=== PATIENT | female | born 1950 | race Caucasian/White ===

== ENCOUNTER 2022-01-09 14:50 | Outpatient (CLI) | payer BC, MEDICARE, SELFPAY | END 2022-01-09 14:51 | disposition home or self-care (01) | LOC: FRMREF 14:51 | PROVIDERS: PCP Internal Medicine; Visit Provider Surgery | DX: L81.9 Disorder of pigmentation, unspecified (principal) ==

== ENCOUNTER 2022-05-13 07:59 | Outpatient (CLI) | payer MEDICARE, BC, SELFPAY ==
--- NOTE | 2022-05-13 08:15 | CRLHL7_ITS ---
For Patients: As a result of the Century Cures Act, medical imaging exams and procedure reports are released immediately into your electronic medical record. You may view this report before your referring provider. If you have questions, please contact your health care provider. BILATERAL SCREENING MAMMOGRAM WITH COMPUTER-AIDED DETECTION TECHNIQUE: CC and MLO views were obtained. These mammographic images have been obtained using full-field digital technique. These mammographic images were interpreted with the benefit of computer-aided detection. COMPARISON FILM: 05/11/21, 05/04/20, 05/03/19. FINDINGS: There are scattered areas of fibroglandular density IMPRESSION: There is no radiographic evidence for malignancy. ASSESSMENT: BI-RADS Category 2: Benign RECOMMENDATION: Routine screening mammogram in 1 year. A lay language report of this examination will be provided to the patient. Morales Hill M.D. Diagnostic Radiologist [email or web address] BENJAMIN/[email or web address] / be/Dictated by: Morales Hill MD @ 05/13/2022 10:35:00 AM (Electronically Signed)
== END 2022-05-13 08:00 | disposition home or self-care (01) ==
PROVIDERS: PCP Internal Medicine; Visit Provider Internal Medicine
DX: Z12.31 Encounter for screening mammogram for malignant neoplasm of breast (principal)
CPT/HCPCS: 77063; 77067

== ENCOUNTER 2022-06-27 10:06 | Outpatient (CLI) | payer MEDICARE, BC, SELFPAY ==
[2022-06-27 10:57] LABS: Albumin* 4.5 g/dL (3.3-5.0); Chloride* 102 mmol/L (96-114)
[2022-06-27 10:58] LABS: Potassium* 4.3 mmol/L (3.6-5.1); Sodium* 140 mmol/L (135-149)
[2022-06-27 11:00] LABS: Bilirubin Total* 1.2 mg/dL (0.1-1.5); Carbon Dioxide* 27 mmol/L (20-32); Cholesterol* 129 mg/dL (90-199); Creatinine* 1.1 mg/dL (0.5-1.5); Estimated Glomerular Filt Rate 54 ml/min; Total Protein* 7.1 g/dL (6.0-8.3)
[2022-06-27 11:01] LABS: Alanine Aminotransferase* 29 U/L (4-35); Alkaline Phosphatase* 63 U/L (40-150); Aspartate Amino Transferase* 33 U/L (12-35); Blood Urea Nitrogen* 19 mg/dL (7-30); Calcium* 9.2 mg/dL (8.4-10.6); Glucose* 175 mg/dL (60-115); HDL Cholesterol* 34 mg/dL (>=50); LDL Cholesterol Calculated 48 mg/dL (<100); Triglycerides* 235 mg/dL (40-149)
[2022-06-27 11:07] LABS: Creatinine Urine 147.6 mg/dL
[2022-06-27 11:11] LABS: Microalbumin Creatinine Ratio 0 mg/g (0-30); Microalbumin Urine 1 mg/dL
== END 2022-06-27 10:07 | disposition home or self-care (01) ==
PROVIDERS: PCP Internal Medicine; Visit Provider Internal Medicine
DX: E11.9 Type 2 diabetes mellitus without complications (principal); I10 Essential (primary) hypertension; E78.5 Hyperlipidemia, unspecified; M10.9 Gout, unspecified; E03.9 Hypothyroidism, unspecified
CPT/HCPCS: 80053; 80061; 82043; 82570

== ENCOUNTER 2022-12-30 07:55 | Outpatient (CLI) | payer MEDICARE, BC, SELFPAY | END 2022-12-30 07:56 | disposition home or self-care (01) | LOC: NFLDREF 12-31 14:51 | PROVIDERS: PCP Internal Medicine; Referring Provider Internal Medicine; Visit Provider Internal Medicine | DX: E03.9 Hypothyroidism, unspecified (principal); E11.9 Type 2 diabetes mellitus without complications; Z79.4 Long term (current) use of insulin | CPT/HCPCS: 84443 ==

== ENCOUNTER 2023-01-23 23:39 | Emergency (ER) | payer MEDICARE, BC, SELFPAY ==
[2023-01-24 00:10] VITALS: BP 166/78; PULSE 89; RESP 18; TEMP 36.8; O2SAT 99; BMI 27.6
--- NOTE | 2023-01-24 00:50 | ED_ITS ---
HPI - Allergic Reaction General Time Seen by Provider: 00:50 Date Seen: 01/24/23 Chief complaint: Allergic Reaction Stated complaint: hives Time Seen by Provider: 01/24/23 00:49 Source: patient and RN notes reviewed Mode of arrival: ambulatory Limitations: no limitations History of Present Illness HPI narrative: This 72-year-old female is coming in with possible reaction to either tetanus or COVID vaccination. She had both of these done in her left arm by the pharmacist on Friday. Today her arm started to become red swollen and warm. It is a bit itchy. Today is and she did not start having this reaction until today. She has subsequently started to break out in hives along her axilla along the skin folds and clothing lines. She does not feel any oral pharyngeal changes, no shortness of breath, no difficulty breathing or swallowing. She has a history of awakening from anesthesia was significant hives once. She also had hives maybe 30-40 years ago from unknown cause. They only could fine Benadryl cream tonight. They do have Zyrtec at home, I have recommended a dose of Zyrtec when she gets home and to take that daily. MD complaint: hives Related Data Home Medications Medication Instructions Recorded Confirmed aspirin 81 mg tablet,delayed 81 mg PO DAILY 07/09/22 01/24/23 release multivitamin (Multiple Vitamins 1 tab PO QAM 07/09/22 01/24/23 tablet) calcium carbonate 600 mg calcium 600 mg PO QDAY 08/15/22 01/24/23 (1,500 mg) tablet (Calcium) insulin glargine 100 unit/mL (3 52 unit subcut QAM 11/18/22 01/24/23 mL) subcutaneous pen (Lantus Solostar U-100 Insulin) omeprazole 20 mg capsule,delayed 20 mg PO QDAY 01/06/23 01/24/23 release Previous Rx's Medication Instructions Recorded hydrocortisone acetate 25 mg 25 mg MD TID PRN hemorrhoids #9 ea 08/15/22 rectal suppository (Anusol-HC) atorvastatin 10 mg tablet 10 mg PO .Bedtime #90 tabs 08/16/22 benazepril 20 1 tab PO DAILY #90 tabs 08/16/22 mg-hydrochlorothiazide 25 mg tablet levothyroxine 100 mcg tablet 100 mcg PO QDAY #90 tabs 08/16/22 metformin 1,000 mg tablet 1,000 mg PO BID #180 tabs 08/16/22 spironolactone 25 mg tablet 25 mg PO DAILY #90 tabs 08/16/22 pen needle, diabetic 32 gauge x #400 ea 09/03/22 (BD Ultra-Fine Jazmin Pen Needle) insulin lispro 100 unit/mL 8 unit (0.08 mL) subcut TID #15 mL 09/09/22 subcutaneous pen (Humalog KwikPen (U-100) Insulin) blood sugar diagnostic (OneTouch #300 ea 10/02/22 Verio test strips) lancets 30 gauge (OneTouch Delica #300 ea 11/18/22 Plus Lancet) Allergies Allergy/AdvReac Type Severity Reaction Status Date / Time No Known Allergies Allergy Unknown Verified 01/24/23 00:12 Review of Systems Narrative As per [facility] PFSH PFS Surgical History (Updated 07/09/22 @ 08:54 by Yesi Haney MD) History of total hysterectomy with bilateral salpingo-oophorectomy (BSO) ?Z90.710 - Acquired absence of both cervix and uterus (ICD-10) ?Z90.722 - Acquired absence of ovaries, bilateral (ICD-10) ?Z90.79 - Acquired absence of other genital organ(s) (ICD-10) History of cholecystectomy ?Z90.49 - Acquired absence of other specified parts of digestive tract (ICD- 10) History of basal cell carcinoma (BCC) (2018) ?Z85.828 - Personal history of other malignant neoplasm of skin (ICD-10) Social History (Updated 01/09/22 @ 14:55 by Sophie Barrios MD) Narrative: Patient denies smoking and drinking alcohol. She is retired. Smoking Status: Never smoker Little interest or pleasure in doing things: not at all Feeling down, depressed, or hopeless: not at all Exam Const: Vital Signs, click to edit/add: Vital Signs - 24 hr 01/24/23 00:10 Temperature 98.2 F Pulse Rate [Right Pulse Oximeter] 89 Respiratory Rate 18 Blood Pressure [Ri ght Upper Arm] 166/78 H Pulse Oximetry 99 Oxygen Delivery Me thod Room Air Documenting provider has reviewed patient's vital signs: yes Common normals: no apparent distress, average body habitus, oriented x3, no limitations, healthy appearing, alert and well nourished General appearance: cooperative, comfortable, well kempt and well developed HENMT: Common normals: normocephalic, head/scalp atraumatic, hearing grossly normal bilaterally, moist oral mucous membranes, oropharynx normal, dentition normal and gingiva normal Head and scalp: normocephalic and atraumatic Face and sinus: normal facial exam Throat: posterior oropharynx normal Eye: Common normals: PERRL, EOMs intact bilaterally, conjunctivae normal and no scleral icterus Conjunctiva: conjunctiva(e) normal Pupil: PERRL Neck & C-Spine: Common normals: full ROM, no lymphadenopathy and supple Resp: Common normals: normal respiratory effort, no retractions, no use of accessory muscles and clear to auscultation bilaterally Effort & inspection: able to speak in complete sentences Auscultation: clear to auscultation bilaterally Cardio: Common normals: regular rate, regular rhythm, S1 normal heart sound, S2 normal heart sound, no gallops, no clicks and no murmurs Rate: regular rate Rhythm: regular rhythm Heart sounds: S1 normal and S2 normal Neuro: Common normals: oriented x3 Sensorium/orientation: alert Psych: Appearance: well kempt Skin: Narrative: She has a large erythematous mildly raised area over her left deltoid that extends down onto the arm. It is warm and can fluent but no fluctuance. Lining both anterior axilla are some smaller pinkish raised areas, she has some on her back, skin fold area consistent with some developing your urticaria. Course Vital Signs Vital signs: Initial Vital Signs Temperature 98.2 F 01/24/23 00:10 Temperature Source Temporal Artery Scan 01/24/23 00:10 Pulse Rate 89 01/24/23 00:10 Respiratory Rate 18 01/24/23 00:10 Blood Pressure 166/78 H 01/24/23 00:10 Blood Pressure Mean 107 H 01/24/23 00:10 Blood Pressure Position Sitting 01/24/23 00:10 Pulse Oximetry 99 01/24/23 00:10 Oxygen Delivery Method Room Air 01/24/23 00:10 Vital Signs Temperature 98.2 F 01/24/23 00:10 Pulse Rate 89 01/24/23 00:10 Respiratory Rate 18 01/24/23 00:10 Blood Pressure 166/78 H 01/24/23 00:10 Pulse Oximetry 99 01/24/23 00:10 Oxygen Delivery Method Room Air 01/24/23 00:10 Temperature 98.2 F 01/24/23 00:10 Pulse Rate 89 01/24/23 00:10 Respiratory Rate 18 01/24/23 00:10 Blood Pressure 166/78 H 01/24/23 00:10 Pulse Oximetry 99 01/24/23 00:10 Oxygen Delivery Method Room Air 01/24/23 00:10 Critical Care Time Critical Care Time Critical Care Time: No Discharge Plan Discharge Clinical Impression: Urticaria Patient Disposition: Home, Self-Care Condition: Stable Instructions: Urticaria (ED) Additional Instructions: Update Dr. Haney regarding this hives and reaction after your tetanus and COVID vaccine. Start prednisone, take as prescribed. Do recommend taking prednisone with food to protect her stomach. Take daily Zyrtec for the next 3-5 days to help block the reaction. Can use the topical Benadryl cream. Do recommend getting oral Benadryl and you can use it if needed, follow bottle directions. If there is any progression into a significant reaction with breathing, oral pharyngeal changes, throat swelling, do need to be emergently re-evaluated. Prescriptions: No Action omeprazole 20 mg capsule,delayed release(DR/EC) 20 mg PO QDAY calcium carbonate [Calcium 600] 600 mg calcium (1,500 mg) tablet 600 mg PO QDAY hydrocortisone acetate [Anusol-HC] 25 mg suppository 25 mg MD TID PRN (Reason: hemorrhoids) Qty: 9 3RF multivitamin [Multiple Vitamins] Tablet 1 tab PO QAM aspirin 81 mg tablet,delayed release (DR/EC) 81 mg PO DAILY insulin glargine [Lantus Solostar U-100 Insulin] 100 unit/mL (3 mL) insulin pen 52 unit subcut QAM (DME) lancets [OneTouch Delica Plus Lancet] 30 gauge misc See Rx Instructions .Route Qty: 300 3RF Rx Instructions: To test BS 3 times wells atorvastatin 10 mg tablet 10 mg PO .Bedtime Qty: 90 3RF benazepril-hydrochlorothiazide 20-25 mg tablet 1 tab PO DAILY Qty: 90 3RF levothyroxine 100 mcg tablet 100 mcg PO QDAY Qty: 90 3RF metformin 1,000 mg tablet 1,000 mg PO BID Qty: 180 1RF spironolactone 25 mg tablet 25 mg PO DAILY Qty: 90 3RF (DME) pen needle, diabetic [BD Ultra-Fine Jazmin Pen Needle] 32 gauge x 5/32 needle See Rx Instructions .Route Qty: 400 1RF Rx Instructions: Pt to use QID insulin lispro [Humalog KwikPen Insulin] 100 unit/mL insulin pen 8 unit subcut TID Qty: 15 2RF (DME) OneTouch Verio test strips Strip See Rx Instructions .Route Qty: 300 2RF Rx Instructions: Patient to test TID Follow Up/Referrals: Yesi Haney MD [Primary Care Provider] - Stand Alone Forms: [facility] Info Instructions
[2023-01-24 01:26] VITALS: BP 166/78; PULSE 89; RESP 18; TEMP 36.8; O2SAT 99
[2023-01-24 01:27] VITALS: BP 166/78; PULSE 89; RESP 18; TEMP 36.8
== END 2023-01-24 01:27 | disposition home or self-care (01) ==
LOC: ED 01-24 01:05
PROVIDERS: Emergency Provider Family Medicine; PCP Internal Medicine
DX: L50.9 Urticaria, unspecified (principal)
CPT/HCPCS: 99283

== ENCOUNTER 2023-05-14 07:58 | Outpatient (CLI) | payer MEDICARE, BC, SELFPAY ==
--- NOTE | 2023-05-14 08:15 | CRLHL7_ITS ---
For Patients: As a result of the Century Cures Act, medical imaging exams and procedure reports are released immediately into your electronic medical record. You may view this report before your referring provider. If you have questions, please contact your health care provider. BILATERAL SCREENING MAMMOGRAM WITH COMPUTER-AIDED DETECTION TECHNIQUE: CC and MLO views were obtained. These mammographic images have been obtained using full-field digital technique. These mammographic images were interpreted with the benefit of computer-aided detection. COMPARISON FILM: 05/13/21, 05/11/21, 05/04/20. FINDINGS: The breasts are almost entirely fatty IMPRESSION: There is no radiographic evidence for malignancy. ASSESSMENT: BI-RADS Category 2: Benign RECOMMENDATION: Routine screening mammogram in 1 year. A lay language report of this examination will be provided to the patient. Morales Hill M.D. Diagnostic Radiologist [email or web address] ADWOA/Dictated by: Morales Hill MD @ 05/15/2023 12:18:00 PM (Electronically Signed)
== END 2023-05-14 07:59 | disposition home or self-care (01) ==
LOC: MAMMO 07:59
PROVIDERS: PCP Internal Medicine; Visit Provider Internal Medicine
DX: Z12.31 Encounter for screening mammogram for malignant neoplasm of breast (principal)
CPT/HCPCS: 77067

== ENCOUNTER 2023-06-30 07:31 | Outpatient (CLI) | payer MEDICARE, BC, SELFPAY | END 2023-06-30 07:32 | disposition home or self-care (01) | LOC: NFLDREF 07-01 10:53 | PROVIDERS: PCP Internal Medicine; Referring Provider Internal Medicine; Visit Provider Internal Medicine | DX: E11.9 Type 2 diabetes mellitus without complications (principal); I10 Essential (primary) hypertension; E03.9 Hypothyroidism, unspecified; M10.9 Gout, unspecified | CPT/HCPCS: 80053; 80061; 82043; 82570 ==

== ENCOUNTER 2024-01-01 07:42 | Outpatient (CLI) | payer MEDICARE, SELFPAY | END 2024-01-01 07:43 | disposition home or self-care (01) | LOC: NFLDREF 01-05 17:07 | PROVIDERS: PCP Internal Medicine; Referring Provider Internal Medicine; Visit Provider Internal Medicine | DX: E03.9 Hypothyroidism, unspecified (principal); E11.9 Type 2 diabetes mellitus without complications | CPT/HCPCS: 84443 ==

== ENCOUNTER 2024-05-17 07:41 | Outpatient (CLI) | payer MEDICARE, BC, SELFPAY ==
--- NOTE | 2024-05-17 08:15 | CRLHL7_ITS ---
For Patients: As a result of the Cures Act, medical imaging exams and procedure reports are released immediately into your electronic medical record. You may view this report before your referring provider. If you have questions, please contact your health care provider. BILATERAL SCREENING MAMMOGRAM WITH COMPUTER-AIDED DETECTION AND TOMOSYNTHESIS TECHNIQUE: CC and MLO views were obtained. These mammographic images have been obtained using full-field digital technique. These mammographic images were interpreted with the benefit of computer-aided detection. Breast Tomosynthesis was used in this interpretation. COMPARISON FILM: 05/14/23, 05/13/22, 05/11/21. FINDINGS: The breasts are almost entirely fatty. IMPRESSION: There is no radiographic evidence for malignancy. ASSESSMENT: BI-RADS Category 2: Benign RECOMMENDATION: Routine screening mammogram in 1 year. A lay language report of this examination will be provided to the patient. Rony Pennington M.D. Diagnostic/Nuclear Medicine Radiologist [email or web address] YOEL/[email or web address] SP/Dictated by: Rony Pennington MD @ 05/19/2024 10:17:00 AM (Electronically Signed)
== END 2024-05-17 07:42 | disposition home or self-care (01) ==
LOC: MAMMO 07:42
PROVIDERS: PCP Internal Medicine; Visit Provider Internal Medicine
DX: Z12.31 Encounter for screening mammogram for malignant neoplasm of breast (principal)
CPT/HCPCS: 77063; 77067

== ENCOUNTER 2024-06-28 08:01 | Outpatient (CLI) | payer MEDICARE, BC, SELFPAY | END 2024-06-28 08:02 | disposition home or self-care (01) | PROVIDERS: PCP Internal Medicine; Referring Provider Internal Medicine; Visit Provider Internal Medicine | DX: E11.65 Type 2 diabetes mellitus with hyperglycemia (principal); I10 Essential (primary) hypertension; E78.5 Hyperlipidemia, unspecified; Z79.4 Long term (current) use of insulin | CPT/HCPCS: 80053; 80061; 82043; 82570 ==

== ENCOUNTER 2024-12-15 07:28 | Outpatient (CLI) | payer MEDICARE, BC, SELFPAY | END 2024-12-15 07:29 | disposition home or self-care (01) | LOC: NFLDREF 12-17 16:31 | PROVIDERS: PCP Internal Medicine; Referring Provider Internal Medicine; Visit Provider Internal Medicine | DX: E11.65 Type 2 diabetes mellitus with hyperglycemia (principal); E03.9 Hypothyroidism, unspecified; Z87.39 Personal history of other diseases of the musculoskeletal system and connective tissue; Z79.4 Long term (current) use of insulin; Z79.84 Long term (current) use of oral hypoglycemic drugs | CPT/HCPCS: 84443; 84550 ==

== ENCOUNTER 2025-06-13 13:16 | Outpatient (CLI) | payer MEDICARE, BC, SELFPAY ==
--- NOTE | 2025-06-13 13:40 | CRLHL7_ITS ---
For Patients: As a result of the Century Cures Act, medical imaging exams and procedure reports are released immediately into your electronic medical record. You may view this report before your referring provider. If you have questions, please contact your health care provider. BILATERAL DIGITAL SCREENING MAMMOGRAM WITH COMPUTER-AIDED DETECTION AND TOMOSYNTHESIS CLINICAL HISTORY: Routine screening exam. COMPARISON: 05/17/2024, 05/14/2023, 05/13/2022. TECHNIQUE: Digital mammogram in CC and MLO projections including computer-aided detection (CAD). Tomosynthesis was used in this interpretation. BREAST COMPOSITION: There are scattered areas of fibroglandular density. FINDINGS: RIGHT Breast: Focal asymmetric density in the upper RIGHT breast. LEFT Breast: No suspicious findings. IMPRESSION: RIGHT breast asymmetry/mass. RECOMMENDATIONS: Additional mammographic views of the RIGHT breast including 3D spot compression CC/MLO and 3D true lateral. RIGHT breast ultrasound may also be required. [facility] will contact the patient. A lay language report of this examination will be provided to the patient. BI-RADS Category 0: Incomplete: Need Additional Imaging Evaluation Dictated by Morales Hill MD @ 06/14/2025 9:11:36 AM jj/Dictated by: Morales Hill MD @ 06/14/2025 9:11:00 AM (Electronically Signed)
== END 2025-06-13 13:17 | disposition home or self-care (01) ==
LOC: MAMMO 13:17
PROVIDERS: PCP Internal Medicine; Visit Provider Internal Medicine
DX: Z12.31 Encounter for screening mammogram for malignant neoplasm of breast (principal); N63.10 Unspecified lump in the right breast, unspecified quadrant
CPT/HCPCS: 77063; 77067

== ENCOUNTER 2025-06-20 10:27 | Outpatient (CLI) | payer MEDICARE, BC, SELFPAY ==
--- NOTE | 2025-06-20 10:45 | CRLHL7_ITS ---
For Patients: As a result of the Cures Act, medical imaging exams and procedure reports are released immediately into your electronic medical record. You may view this report before your referring provider. If you have questions, please contact your health care provider. RIGHT DIAGNOSTIC MAMMOGRAM WITH COMPUTER-AIDED DETECTION AND TOMOSYNTHESIS RIGHT BREAST ULTRASOUND CLINICAL HISTORY: RIGHT breast mass/asymmetry. COMPARISON: 06/13/2025, 05/17/2024, 05/14/2023. TECHNIQUE: Digital RIGHT mammogram in three projections. Computer-aided detection and tomosynthesis were used in this interpretation. Real-time ultrasound imaging of RIGHT breast with imaging documentation. BREAST COMPOSITION: There are scattered areas of fibroglandular density. FINDINGS: Additional mammogram images of the RIGHT breast submitted. Persistent density in the lateral RIGHT breast is present. Benign calcifications. Normal-appearing RIGHT axillary lymph nodes. Targeted RIGHT breast ultrasound performed. At 12 o`clock, 3 cm from the nipple, there is an irregular hypoechoic density with indistinct margins measuring approximately 7 mm. Normal RIGHT axillary lymph nodes. IMPRESSION: Suspicious 8 mm mass RIGHT breast 12 o`clock, 3 cm from the nipple. RECOMMENDATIONS: Ultrasound-guided core needle biopsy. A lay language report of this examination will be provided to the patient. BI-RADS Category 4: Suspicious Dictated by Morales Hill MD @ 06/20/2025 11:21:39 AM /sp SP/Dictated by: Morales Hill MD @ 06/20/2025 11:39:00 AM (Electronically Signed)
--- NOTE | 2025-06-20 11:15 | CRLHL7_ITS ---
For Patients: As a result of the Century Cures Act, medical imaging exams and procedure reports are released immediately into your electronic medical record. You may view this report before your referring provider. If you have questions, please contact your health care provider. PLEASE SEE RIGHT BREAST DIAGNOSTIC MAMMOGRAM PERFORMED SAME DAY. CRL:sp SP/Dictated by: Morales Hill MD @ 06/20/2025 11:45:00 AM (Electronically Signed)
== END 2025-06-20 10:28 | disposition home or self-care (01) ==
LOC: MAMMO 10:28
PROVIDERS: PCP Internal Medicine; Visit Provider Internal Medicine
DX: N63.10 Unspecified lump in the right breast, unspecified quadrant (principal); R92.8 Other abnormal and inconclusive findings on diagnostic imaging of breast; Z13.818 Encounter for screening for other digestive system disorders; D64.9 Anemia, unspecified; B34.2 Coronavirus infection, unspecified
CPT/HCPCS: 76642; 77065; G0279

== ENCOUNTER 2025-06-20 18:12 | Outpatient (CLI) | payer MEDICARE, BC, SELFPAY ==
[2025-06-20 22:12] LABS: Albumin* 4.3 g/dL (3.3-5.0)
[2025-06-20 22:15] LABS: Alanine Aminotransferase* 23 U/L (4-35); Alkaline Phosphatase* 63 U/L (40-150); Aspartate Amino Transferase* 43 U/L (12-35); Bilirubin Direct* 0.3 mg/dL (0.0-0.5); Bilirubin Total* 0.8 mg/dL (0.1-1.5); Total Protein* 7.4 g/dL (6.0-8.3)
== END 2025-06-20 18:13 | disposition home or self-care (01) ==
PROVIDERS: PCP Internal Medicine; Visit Provider Physician Assistant Surgical
DX: Z13.818 Encounter for screening for other digestive system disorders (principal); D64.9 Anemia, unspecified; B34.2 Coronavirus infection, unspecified
CPT/HCPCS: 80076

== ENCOUNTER 2025-06-27 07:35 | Outpatient (CLI) | payer MEDICARE, BC, SELFPAY | END 2025-06-27 07:36 | disposition home or self-care (01) | LOC: NFLDREF 06-29 12:42 | PROVIDERS: PCP Internal Medicine; Referring Provider Internal Medicine; Visit Provider Internal Medicine | DX: E11.9 Type 2 diabetes mellitus without complications (principal); Z79.4 Long term (current) use of insulin | CPT/HCPCS: 80053; 80061; 82043; 82570 ==

== ENCOUNTER 2025-06-27 07:44 | Outpatient (CLI) | payer MEDICARE, BC, SELFPAY ==
--- NOTE | 2025-06-27 08:15 | CRLHL7_ITS ---
For Patients: As a result of the Century Cures Act, medical imaging exams and procedure reports are released immediately into your electronic medical record. You may view this report before your referring provider. If you have questions, please contact your health care provider. ULTRASOUND-GUIDED BREAST BIOPSY AND POST-BIOPSY DIGITAL MAMMOGRAM FOR BIOPSY MARKER PLACEMENT CLINICAL HISTORY: Indeterminate lesion RIGHT breast. COMPARISON STUDIES: 06/20/2025. TECHNIQUE: Real-time ultrasound with image documentation was used for targeting the breast lesion. Core biopsy specimens were obtained using an automated gun with a 14-gauge biopsy needle. Post-biopsy CC and ML digital mammograms were obtained to document position of the biopsy marker. CONSENT and TIME OUT: The procedure, risks, and alternatives were explained to the patient and a consent was signed. [facility] Protocol was followed including pre-procedure verification that relevant information/documentation was available, reviewed and properly matched to the patient; consent accurate and complete; and equipment and supplies available. Time Out was conducted just prior to starting procedure to verify the four required elements: patient identity, correct side/site marked (if applicable), procedure, relevant images/results properly labeled and displayed (if applicable). PROCEDURE: The patient was positioned supine on the ultrasound table. The breast was prepped with Betadine. 8 cc of 1 percent lidocaine used for local anesthesia. Core samples were obtained. A sterile metal biopsy clip was placed percutaneously to amberly the lesion position within the breast. The specimens were placed in 10% formalin and sent to the pathology department. Pressure was held on the biopsy site until all bleeding subsided. The skin incision was closed with Steri-Strips. An ice pack was positioned over the biopsy site. Post-biopsy instructions were reviewed with the patient, and a written copy was given to her. LATERALITY: RIGHT breast. LESION: Ill-defined hypoechoic shadowing lesion measures 4 x 8 x 4 mm at 12 o`clock 3 cm from the nipple. SUSPICION FOR MALIGNANCY: Intermediate. NUMBER OF SAMPLES: 5. BIOPSY CLIP SHAPE: Oval. PROXIMITY OF CLIP TO TARGET: Within the lesion. IMPRESSION: Ultrasound-guided breast biopsy. When the pathology report is available, an addendum to this report will be made. ACR not applicable Dictated by Morales Hill MD @ 06/27/2025 10:37:04 AM jj/Dictated by: Moarles Hill MD @ 06/27/2025 10:37:00 AM (Electronically Signed)
--- NOTE | 2025-06-27 09:00 | CRLHL7_ITS ---
For Patients: As a result of the Century Cures Act, medical imaging exams and procedure reports are released immediately into your electronic medical record. You may view this report before your referring provider. If you have questions, please contact your health care provider. SEE ULTRASOUND-GUIDED RIGHT BREAST BIOPSY PERFORMED SAME DAY CRL:mary hernandez/Dictated by: Morales Hill MD @ 06/27/2025 9:40:00 AM (Electronically Signed)
== END 2025-06-27 07:45 | disposition home or self-care (01) ==
LOC: US 07:45
PROVIDERS: PCP Internal Medicine; Visit Provider Internal Medicine
DX: N63.10 Unspecified lump in the right breast, unspecified quadrant (principal); R92.8 Other abnormal and inconclusive findings on diagnostic imaging of breast; E11.9 Type 2 diabetes mellitus without complications; Z79.4 Long term (current) use of insulin
CPT/HCPCS: 19083; 77065; A4648; A4649

== ENCOUNTER 2025-06-30 08:48 | Outpatient (CLI) | payer MEDICARE, BC, SELFPAY | END 2025-06-30 08:49 | disposition home or self-care (01) | LOC: NFLDREF 08:51 | PROVIDERS: PCP Internal Medicine; Visit Provider Internal Medicine | DX: Z86.2 Personal history of diseases of the blood and blood-forming organs and certain disorders involving the immune mechanism (principal) | CPT/HCPCS: 82728 ==

== ENCOUNTER 2025-07-04 11:48 | Outpatient (CLI) | payer MEDICARE, BC, SELFPAY ==
--- NOTE | 2025-07-04 12:00 | CRLHL7_ITS ---
For Patients: As a result of the Century Cures Act, medical imaging exams and procedure reports are released immediately into your electronic medical record. You may view this report before your referring provider. If you have questions, please contact your health care provider. BILATERAL BREAST MRI WITHOUT AND WITH GADOLINIUM, CLINICAL HISTORY: Patient with newly diagnosed RIGHT breast 12 o???clock, 3 cm from the nipple invasive lobular carcinoma diagnosed from biopsy of a 0.4 x 0.8 x 0.4 cm mass 12 o???clock position, 3 cm from the nipple. INDICATION FOR BREAST MRI: Staging of newly diagnosed breast cancer and screening of contralateral breast. Regional lymph nodes will also be assessed. COMPARISON STUDIES: Mammogram 06/27/2025, 06/13/2025. Ultrasound 06/27/2025. CONTRAST: 16 cc Dotarem. TECHNIQUE: The patient was positioned prone using a breast coil. Multiple imaging sequences were obtained using 1-1.5 mm thick slices with no gap. The image sequences include T2-weighted STIR in the axial plane, T1-weighted nonfat-saturated gradient echo in the axial plane, pre- and post-contrast T1-weighted FLASH 3D with fat suppression in the axial plane, and T1-weighted FLASH high-resolution 3D with fat suppression in the sagittal plane. Image post-processing was performed on a [employer] workstation. Complex 3D rendering including maximum intensity projections (MIPS) and volumetric renderings were obtained to optimize visualization of the extent of pathology and relationship to the nipple, skin, and chest wall. This aids in determining feasibility of breast conservation surgery. Subtraction, multiplanar reconstruction, mean curve determination, and angiogenesis mapping were also performed. The study was technically adequate. FINDINGS: Amount of Fibroglandular Tissue: Scattered fibroglandular tissue. Breast Background Enhancement: Mild. RIGHT and LEFT Breast: Spiculated mass in the RIGHT breast 12 o???clock position measuring 1.2 x 1.5 cm with susceptibility artifact from the biopsy clip reflecting the biopsied cancer. Heterogeneous enhancement with rapid uptake and washout of contrast. No additional suspicious enhancement in either breast. Lymph Nodes: No abnormal morphology axillary lymph nodes or internal mammary lymph nodes. Other Findings: None. IMPRESSIONS AND RECOMMENDATIONS: Spiculated mass 12 o???clock position middle to anterior depth measuring 1.2 x 1.5 x 1.0 cm reflecting the biopsied cancer. No suspicious findings in either breast. No morphologically abnormal axillary lymph nodes or internal mammary lymph nodes. Surgical and oncologic management per referring physician. BI-RADS: BI-RADS Category 6: Known Biopsy-Proven Malignancy Dorota Palmer M.D. Diagnostic/Breast Radiologist [email or web address] Transcribed: 3:48 pm DW/Dictated by: Dorota Palmer MD @ 07/05/2025 12:36:00 PM (Electronically Signed)
== END 2025-07-04 11:49 | disposition home or self-care (01) ==
LOC: MRI 11:49
PROVIDERS: PCP Internal Medicine; Visit Provider Surgery
DX: C50.911 Malignant neoplasm of unspecified site of right female breast (principal)
CPT/HCPCS: 77049; A9575